=== PATIENT | female | born 1995 | race Caucasian/White ===

== ENCOUNTER 2019-12-31 21:42 | Emergency (ER) | payer BC ==
[2019-12-31 21:48] VITALS: BP 119/74; PULSE 120; RESP 20; TEMP 99.5
[2019-12-31] MEDS ORDERED: IBUPROFEN 600 MG STARTER PACK 4 TAB BTL PO STA (21:55)
[2019-12-31] MEDS ORDERED: ACET/COD 300 MG/30 MG STARTER PACK 6 TAB BTL PO STA (21:55)
--- NOTE | 2019-12-31 22:18 | XR ---
EXAMINATION TYPE: XR foot complete LT DATE OF EXAM: 12/31/2019 COMPARISON: NONE HISTORY: Foot pain and swelling TECHNIQUE: 2 views FINDINGS: Metatarsals appear intact. I see no fracture nor dislocation. Joint spaces appear normal. IMPRESSION: Negative left foot exam. No fracture seen.
--- NOTE | 2019-12-31 22:44 | ED ---
Lower Extremity Injury HPI - General Chief Complaint: Extremity Injury, Lower Stated Complaint: Foot Injury Time Seen by Provider: 12/31/19 21:50 Source: patient Mode of arrival: ambulatory Limitations: no limitations - History of Present Illness Initial Comments: 24-year-old female patient presents to the emergency department today for evaluation of left foot injury. Patient states that earlier today she was water skiing. Patient states that her feet strep into the skis and or supposed to break free if she should fall. Patient states that her left ski did not break free causing injury to the foot. Patient states she is having pain and swelling to the dorsal aspect of the foot. States she is able to ambulate but it does cause her significant discomfort to bear weight. She denies taking anything for pain. Denies numbness or tingling to the foot at rest but she does experience tingling when she bends her toes. She denies any head or neck injury. Denies any back injury. Patient denies any headache, neck pain, back pain, chest pain, shortness of breath, dizziness, weakness, abdominal pain, nausea, vomiting, or difficulties with bowel movements or urination. - Related Data Home Medications Medication Instructions Recorded Confirmed No Known Home Medications 12/31/19 12/31/19 Allergies Allergy/AdvReac Type Severity Reaction Status Date / Time black beans Allergy Rash/Hives Uncoded 12/31/19 22:19 Review of Systems ROS Statement: Those systems with pertinent positive or pertinent negative responses have been documented in the HPI. ROS Other: All systems not noted in ROS Statement are negative. Past Medical History Past Medical History: No Reported History History of Any Multi-Drug Resistant Organisms: None Reported Additional Past Surgical History / Comment(s): oral surgery, hernia surgery Past Psychological History: No Psychological Hx Reported Smoking Status: Never smoker Past Alcohol Use History: None Reported Past Drug Use History: None Reported General Exam Limitations: no limitations General appearance: alert, in no apparent distress, other (This is a well- developed, well-nourished adult female patient in no acute distress. Vital signs upon presentation are temperature 99.5F, pulse 120, respirations 20, blood pressure 119/74, pulse ox 96% on room air.) Neck exam: Present: normal inspection, full ROM, other (Nontender, no step-off, no deformity to firm midline palpation of the posterior cervical spine. Full range of motion without pain or limitation.). Absent: tenderness, meningismus, lymphadenopathy Respiratory exam: Present: normal lung sounds bilaterally. Absent: respiratory distress, wheezes, rales, rhonchi, stridor Cardiovascular Exam: Present: regular rate, normal rhythm, normal heart sounds. Absent: systolic murmur, diastolic murmur, rubs, gallop, clicks Extremities exam: Present: full ROM, tenderness (Over the dorsal aspect of the left foot), normal capillary refill, other (There is soft tissue swelling and ecchymosis noted over the dorsal aspect of the left foot. Skin is otherwise pink, warm, dry. Cap refills less than 3 seconds. Pedal and posttibial pulses are 2+ and equal bilaterally.). Absent: normal inspection, pedal edema, joint swelling, calf tenderness Back exam: Present: normal inspection, other (Nontender, no step-off, no deformity to firm midline palpation of the thoracic and lumbar vertebrae. Full range of motion without pain or limitation.). Absent: vertebral tenderness Neurological exam: Present: alert, oriented X3, CN II-XII intact Psychiatric exam: Present: normal affect, normal mood Skin exam: Present: warm, dry, intact, normal color. Absent: rash Course Vital Signs 12/31/19 21:45 Temperature 99.5 F Pulse Rate 120 H Respiratory 20 Rate Blood Pressure 119/74 O2 Sat by Pulse 96 Oximetry Medical Decision Making - Medical Decision Making 24-year-old female patient presented to the emergency department today for evaluation of left foot injury during waterskiing accident. Physical examination did reveal soft tissue swelling and tenderness over the left dorsal foot. X-ray was obtained and showed no abnormalities. Patient was placed in an Marlon wrap. She is instructed to rest, ice, elevate for the next week. If she is still having pain after weeks she is instructed to obtain repeat x-rays. Return parameters were discussed in detail. She is instructed to follow-up with her primary care physician for recheck in 1-2 days per She verbalizes understanding and agrees with this plan. - Radiology Data Radiology results: report reviewed, image reviewed 2 views of the left foot are obtained. Report is reviewed in its entirety. Impression by Dr. Partida shows negative left foot exam. No fracture seen. Disposition Clinical Impression: Sprain of left foot Disposition: HOME SELF-CARE Condition: Good Instructions (If sedation given, give patient instructions): Foot Sprain (ED) Additional Instructions: Rest, ice, elevate the left foot. Use Marlon wrap for comfort and support. Take Tylenol Motrin for pain control. Follow-up with your primary care physician for recheck in 1-2 days. Have repeat x-rays performed in 7-10 days if pain symptoms persist. Return to the emergency department immediately for any new, worsening, or concerning symptoms. Is patient prescribed a controlled substance at d/c from ED?: No Referrals: iNcole Ness, PAC [Primary Care Provider] - 1-2 days Time of Disposition: 22:44
== END 2019-12-31 23:22 | disposition home or self-care (01) ==
LOC: EC 21:42
DX: S93.602A Unspecified sprain of left foot, initial encounter (principal); Z91.018 Allergy to other foods; W19.XXXA Unspecified fall, initial encounter; Y93.17 Activity, water skiing and wake boarding
CPT/HCPCS: 99283